=== PATIENT | male | born 1995 | race Caucasian/White ===

== ENCOUNTER → 2023-07-09 07:19 | Outpatient (REF) | payer BC, SELFPAY | LOC: HWRAD 07:19 | PROVIDERS: ATTENDING PHYSICIAN Student in an Organized Health Care Education/Training Program | DX: N50.89 Other specified disorders of the male genital organs (principal) | CPT/HCPCS: 76870; 93976 ==

== ENCOUNTER → 2023-07-13 07:30 | Outpatient (REF) | payer BC, SELFPAY ==
[2023-07-13 09:23] LABS: LDH 166 U/L (120-246)
[2023-07-13 10:03] LABS: Beta HCG Quantitative < 2.39 mIU/ml
[2023-07-15 19:19] LABS: AFP Male/Tumor Marker 1.05 ng/ml
== END ==
LOC: REG 07:30
PROVIDERS: ATTENDING PHYSICIAN Specialist; FAMILY PHYSICIAN Family Medicine
DX: C62.90 Malignant neoplasm of unspecified testis, unspecified whether descended or undescended (principal)
CPT/HCPCS: 36415; 82105; 83615; 84702

== ENCOUNTER 2023-07-19 06:12 | Day surgery (SDC) | payer BC, SELFPAY ==
[2023-07-19] VITALS (10 sets, daily range): BP systolic 112–125; BP diastolic 66–82
[2023-07-19] MEDS: NORMOSOL-R 1000 IV (06:24)
[2023-07-19] MEDS: DILAUDID 0.25 MG IV ×2 (09:04→09:10)
[2023-07-19] MEDS: ZOFRAN 4 MG IV (10:47)
== END 2023-07-19 11:30 | disposition home or self-care (01) ==
LOC: SDS 06:12
PROVIDERS: ATTENDING PHYSICIAN Specialist
DX: C62.92 Malignant neoplasm of left testis, unspecified whether descended or undescended (principal)
CPT/HCPCS: 54530; 88309; 88341; 88342